=== PATIENT | male | born 1960 | race Caucasian/White ===

== ENCOUNTER 2023-12-31 02:16 | Day surgery (SDC) | payer MEDICARE, MEDICAID, SELFPAY ==
[2023-12-20 14:26] VITALS: BMI 27.6
--- NOTE | 2023-12-28 10:00 | SUR.PREOP ---
Patient called regarding upcoming procedure. Reviewed preop instructions, appointment times, and procedure prep.
[2023-12-31 09:10] VITALS: BP 136/89; PULSE 85; RESP 16; TEMP 36.1; O2SAT 99
[2023-12-31] MEDS: LACTATED RINGERS 1,000 ML 150 ML IV CONT (09:26)
--- NOTE | 2023-12-31 09:36 | WPDANESEPPF ---
Anes - Initial Pre Proc Eval Procedure: Operation Date: 12/31/23 10:30 Proposed Procedures p Esophagogastroduodenoscopy & Colonoscopy - Walt Archibald MD Date/Time: 12/31/23 09:36 Surgeon: Walt Archibald MD Pre Op Diagnosis: neoplasm screening, Unspecified cirrhosis of liver Patient Data Age: 63 Gender: M Height: 1.63 m Weight: 75.2 kg Last Vital Signs Temp 96.9 F L 12/31/23 09:10 Pulse 85 12/31/23 09:10 Resp 16 12/31/23 09:10 BP 136/89 12/31/23 09:10 Pulse Ox 99 12/31/23 09:10 O2 Del Method Room Air 12/31/23 09:10 Allergies Allergy/AdvReac Type Severity Reaction Status Date / Time No Known Allergies Allergy Unverified 12/31/23 09:08 Home Medications Medication Instructions Recorded Confirmed Type aspirin 81 mg tablet,delayed 81 mg PO DAILY 10/29/23 12/31/23 History release (Adult Aspirin Regimen) dapagliflozin propanediol 5 mg 5 mg PO DAILY 10/29/23 12/31/23 History tablet (Farxiga) lisinopril 40 mg tablet 40 mg PO DAILY 10/29/23 12/31/23 History metoprolol succinate 25 mg 25 mg PO DAILY 10/29/23 12/31/23 History tablet,extended release 24 hr pravastatin 80 mg tablet 80 mg PO DAILY 10/29/23 12/31/23 History colchicine 0.6 mg tablet 0.6 mg PO DAILY 12/20/23 12/31/23 History Patient hx anesthesia problems: none Family hx anesthesia problems: none Results Review: All pre-operative results and documents have been reviewed as part of the pre-operative evaluation. [facility] Past Medical History Medical History (Updated 10/29/23 @ 11:38 by JYOTI Strickland) Atrial fibrillation status post cardioversion Automatic implantable cardioverter-defibrillator lead displacement Bladder stones BPH (benign prostatic hyperplasia) CHF (congestive heart failure) Chronic kidney disease Diverticula, bladder Encounter for screening colonoscopy Gout Hyperlipemia Ischemic cardiomyopathy with implantable cardioverter-defibrillator (ICD) Leukocytopenia Myocardial infarction Pacemaker Paroxysmal atrial fibrillation Thrombocytopenia Unspecified cirrhosis of liver Venous embolism Ventricular tachycardia Surgical History Surgical History History of appendectomy History of colostomy History of colostomy reversal History of testicular surgery S/P CABG x 3 Social History Social History Smoking status: Former smoker Tobacco type: cigarettes Alcohol intake: former Substance use: current Substance use type: marijuana Last use: 12/20/23 Do You Feel Safe in your Home?: Yes Living arrangements: with family Spiritual care concerns: No Anes - Eval Final PreProcedure Day of Procedure 12/31/23 09:36 Patient weight: normal Heart: regular rate and rhythm Lungs: clear to auscultation Airway: Mallampati scale class II Neurological: alert and oriented Last oral intake: >/= 8 hours ASA classification: III Emergent: no Anesthetic plan: proceed Anesthesia type and monitoring: general GIVS and standard monitoring Results Review: All pre-operative results and documents have been reviewed as part of the pre-operative evaluation. Informed Consent: The patient's anesthetic plan and its attendant risks and benefits were discussed with the patient/family/POA. Questions were solicited and answers provided to the satisfaction of the patient/family/POA.
--- NOTE | 2023-12-31 10:02 | PM.HPGS ---
History of Present Illness History of Present Illness Consent: Risks, benefits, and alternatives have been discussed and questions answered. Patient agrees to proceed with procedure. Chief complaint: neoplasm screening, Unspecified cirrhosis of liver Narrative: Dominic Danielle is a 63 year old male with cirrhosis, no recent EGD Review of Systems Review of Systems: All systems reviewed & are unremarkable except as noted in HPI and below PMFSH Past Medical History Medical History (Updated 12/31/23 @ 10:02 by Walt Archibald MD) Atrial fibrillation status post cardioversion Automatic implantable cardioverter-defibrillator lead displacement Bladder stones BPH (benign prostatic hyperplasia) CHF (congestive heart failure) Chronic kidney disease Cirrhosis Colon cancer screening Diverticula, bladder Encounter for screening colonoscopy Gout Hyperlipemia Ischemic cardiomyopathy with implantable cardioverter-defibrillator (ICD) Leukocytopenia Myocardial infarction Pacemaker Paroxysmal atrial fibrillation Thrombocytopenia Unspecified cirrhosis of liver Venous embolism Ventricular tachycardia Surgical History Surgical History History of appendectomy History of colostomy History of colostomy reversal History of testicular surgery S/P CABG x 3 Social History Social History Smoking status: Former smoker Tobacco type: cigarettes Alcohol intake: former Substance use: current Substance use type: marijuana Last use: 12/20/23 Do You Feel Safe in your Home?: Yes Living arrangements: with family Spiritual care concerns: No Meds Home Medications and Allergies Home Medications Medication Instructions Recorded Confirmed Type aspirin 81 mg tablet,delayed 81 mg PO DAILY 10/29/23 12/31/23 History release (Adult Aspirin Regimen) dapagliflozin propanediol 5 mg 5 mg PO DAILY 10/29/23 12/31/23 History tablet (Farxiga) lisinopril 40 mg tablet 40 mg PO DAILY 10/29/23 12/31/23 History metoprolol succinate 25 mg 25 mg PO DAILY 10/29/23 12/31/23 History tablet,extended release 24 hr pravastatin 80 mg tablet 80 mg PO DAILY 10/29/23 12/31/23 History colchicine 0.6 mg tablet 0.6 mg PO DAILY 12/20/23 12/31/23 History Allergies Allergy/AdvReac Type Severity Reaction Status Date / Time No Known Allergies Allergy Unverified 12/31/23 09:08 Vital Signs Vital Signs - 24 hr 12/31/23 09:10 Temperature 96.9 F L Pulse Rate 85 Respiratory Rate 16 Blood Pressure 136/89 Pulse Oximetry 99 Oxygen Delivery Room Air Exam Const: General: comfortable and no acute distress HENMT: Face/Nose/Sinus: Normal nares present Eyes: General: appearance normal, both eyes and all related structures Neck: Neck: no JVD Resp: Auscultation: clear to auscultation bilaterally Cardio: Rate: regular rate Rhythm: regular rhythm GI: Inspection: non-distended GI Palp: Yes Soft to palpation Skin: General skin exam: normal color Neuro: General: gait normal Speech: normal speech Extrem: General: normal to inspection Psych: Mental Status: mental status grossly normal Assessment and Plan Assessment and plan (1) Cirrhosis: Code(s): K74.60 - Unspecified cirrhosis of liver Status: Acute Assessment and Plan: egd to assess if varices (2) Colon cancer screening: Code(s): Z12.11 - Encounter for screening for malignant neoplasm of colon Status: Acute Assessment and Plan: colonoscopy
--- NOTE | 2023-12-31 10:17 | SUR.OPER ---
EGD: [id number] COLON: Start 1018
[2023-12-31 10:31] VITALS: BP 101/65; PULSE 80; RESP 28; O2SAT 100
[2023-12-31 10:41] VITALS: BP 113/76; PULSE 81; RESP 22; O2SAT 100
[2023-12-31 10:51] VITALS: BP 125/84; PULSE 80; RESP 20; O2SAT 99
== END 2023-12-31 11:03 | disposition home or self-care (01) ==
PROVIDERS: Visit Provider Internal Medicine Gastroenterology
PROC: 0DJ08ZZ Inspection of Upper Intestinal Tract, Via Natural or Artificial Opening Endoscopic (ICD-10-PCS; CPT 43235; principal; 2023-12-31 10:30)
DX: Z12.11 Encounter for screening for malignant neoplasm of colon (principal); K63.5 Polyp of colon; K64.8 Other hemorrhoids; K29.50 Unspecified chronic gastritis without bleeding; I85.00 Esophageal varices without bleeding; K74.60 Unspecified cirrhosis of liver; N40.0 Benign prostatic hyperplasia without lower urinary tract symptoms; I50.9 Heart failure, unspecified; N18.9 Chronic kidney disease, unspecified; N32.3 Diverticulum of bladder; E78.5 Hyperlipidemia, unspecified; F12.90 Cannabis use, unspecified, uncomplicated; Z79.82 Long term (current) use of aspirin; I48.0 Paroxysmal atrial fibrillation; I25.2 Old myocardial infarction; Z98.890 Other specified postprocedural states; Z95.1 Presence of aortocoronary bypass graft; Z87.891 Personal history of nicotine dependence; Z86.79 Personal history of other diseases of the circulatory system; Z95.0 Presence of cardiac pacemaker
CPT/HCPCS: 43239; 45380; 88305; J2704; J7120

== ENCOUNTER 2024-01-26 07:32 | Outpatient (CLI) | payer MEDICARE, MEDICAID, SELFPAY ==
--- NOTE | ~2024-01-26 | US_ITS ---
US abdomen limited DATE: 01/26/2024 08:10 INDICATION: Cirrhosis of the liver TECHNIQUE: Real time imaging and Doppler analysis COMPARISON: None FINDINGS: Mild hepatic surface nodularity. There is mild coarsened heterogeneous echotexture of the l iver. The findings are consistent with clinical diagnosis of cirrhosis. No hepatic or pancreatic space-occupying mass lesion is detected. Normal hepatopedal portal venous flow direction. No gallstones or gallbladder wall thickening. Negative sonographic Marion sign. The common bile duct measures 4.1 mm, within normal range. IMPRESSION: Hepatic surface nodularity and coarsened echotexture, consistent with clinical diagnosis of cirrhosis Reviewed, dictated and finalized at [facility] Reviewed, dictated and finalized at [facility]. IMPRESSION: Hepatic surface nodularity and coarsened echotexture, consistent wi th clinical diagnosis of cirrhosis
== END 2024-01-26 07:33 | disposition home or self-care (01) ==
LOC: ANHIMG 07:33
PROVIDERS: Visit Provider Nurse Practitioner Family
DX: K74.60 Unspecified cirrhosis of liver (principal)
CPT/HCPCS: 76705

== ENCOUNTER 2024-08-20 08:14 | Outpatient (CLI) | payer MEDICARE, MEDICAID, SELFPAY ==
--- NOTE | ~2024-08-20 | US_ITS ---
Limited Abdominal Sonogram: Real-time sonographic imaging of the right upper quadrant was performed. Clinical History: Cirrhosis Findings: The liver is heterogeneous in echotexture, with nodular contour. No focal mass or biliary dilatation evident.. Main portal vein demonstrates normal direction of flow. The gallbladder is well distended, and appears normal with no evidence of gallstone or wall thickening. The common bile duct measures 5 mm. The visualized pancreas, aorta, and IVC are unremarkable. Impression: Cirrhotic appearance of the liver. No focal mass or biliary dilatation evident. Reviewed, dictated and finalized at [facility]. TECH Impression: Cirrhotic appearance of the liver. No focal mass or biliary dilatation evident.
== END 2024-08-20 08:15 | disposition home or self-care (01) ==
LOC: ANHIMG 08:14
PROVIDERS: Visit Provider Nurse Practitioner Family
DX: K74.60 Unspecified cirrhosis of liver (principal)
CPT/HCPCS: 76705

== ENCOUNTER 2024-10-02 10:24 | Outpatient (CLI) | payer MEDICARE, MEDICAID, SELFPAY ==
[2024-10-02 11:00] LABS: Hematocrit 42.8 % (42.0-52.0); Hemoglobin 14.6 g/dL (14.0-18.0); Immature Platelet Fraction Pct 4.3 % (0.9-11.2); Mean Corpuscular HGB Conc 34.1 g/dl (32-36); Mean Corpuscular Hemoglobin 33.6 pg (26-34); Mean Corpuscular Volume 98.4 fl (80-100); Mean Platelet Volume 10.6 fl (7.4-10.4); Platelet Count Result 50 k/mm3 (150-375); Red Blood Count 4.35 M/mm3 (4.6-6.20); Red Cell Distribution Width 13.7 % (11.5-14.5); White Blood Count 2.9 K/mm3 (4.5-10.0)
[2024-10-02 11:12] LABS: INR 1.1; Prothrombin Time 14.2 Seconds (11.1-14.7)
[2024-10-02 11:13] LABS: Alanine Aminotransferase 24 U/L (6-50); Albumin Level 4.1 g/dL (3.5-5.1); Alkaline Phosphatase 70 U/L (38-126); Anion Gap 2 mmol/L (4-12); Aspartate Amino Transferase 33 U/L (17-59); Bilirubin,Total 0.9 mg/dL (0.2-1.3); Blood Urea Nitrogen 21 mg/dL (9-20); Calcium 9.1 mg/dL (8.4-10.2); Carbon Dioxide 30 mmol/L (22-30); Chloride 108 mmol/L (98-107); Estimated Glomerular Filt Rate 36; Glucose 89 mg/dL (65-110); Potassium 4.7 mmol/L (3.4-5.0); Sodium 140 mmol/L (137-145)
== END 2024-10-02 10:25 | disposition home or self-care (01) ==
PROVIDERS: Visit Provider Nurse Practitioner Family
DX: K74.60 Unspecified cirrhosis of liver (principal)
CPT/HCPCS: 36415; 80053; 82105; 85027; 85055; 85610

== ENCOUNTER 2024-11-26 07:07 | Outpatient (CLI) | payer MEDICARE, MEDICAID, SELFPAY ==
--- NOTE | ~2024-11-26 | US_ITS ---
US abdomen limited INDICATION: Cirrhosis PROCEDURE: Realtime right upper abdominal ultrasound. COMPARISON: No prior studies for comparison. FINDINGS: The pancreas is normal without focal mass or pancreatic ductal dilation. Liver echotexture is coarse and heterogeneous with nodular liver surface, compatible with cirrhosis. No discrete hepat ic mass is seen. There is normal directional flow in the portal vein. The gallbladder is normal without stones, gallbladder wall thickening or pericholecystic fluid. Comm on bile duct measures 3 mm. No sonographic Marion's sign. IMPRESSION: 1: Cirrhosis of the liver. Reviewed, dictated and finalized at location A. LE DIPPER IMPRESSION: 1: Cirrhosis of the liver.
--- OUTSIDE RECORDS SUMMARY | 2024-11-26 07:11 | XMS_ITS | Encounter Summary ---
Author Organization [facility] Address [address] [place] [address] Care Team Providers Care Air Quality Engineer Name Role Phone Alexandra De León [facility] Primary Care Provider + Varun Cameron MD Unavailable [phone] Aurea Abad MD Unavailable [phone] Terrence Greene MD Unavailable Walt Archibald MD Unavailable [phone] Cedric Diaz DPM Unavailable Encounter Details Date Type Department Care Team (Late st Contact Info) Description 12/17/2023 Therapy Plan [facility] [address] [place], [place] [phone] Jeanette Garces, ROUTE SALESMAN-C [address] [id number] Social History Tobacco Use Types Packs/Day Years Used Date Smoking Tobacco: Former Cigarettes 1 25 1 975 - 2000 Smokeless Tobacco: Never Alcohol Use Standard Drinks/Week Comments Not Currently 0 (1 standard drink = 0.6 oz pur e alcohol) rare; quit 15-16 years PHQ-2 Answer Date Recorded Patient Health Questionnaire-2 Score 0 10/09/2023 Sex and Gender Information Value Date Recorded Sex Assigned at Male 10/23/2024 7:13 AM COMMUNITY OUTREACH MANAGER Legal Sex Male 11:26 AM CDT Gender Identity Not on file Sexual Orientation Not on file documented as of this encounter Plan of Treatment Upcoming Encounters Date Type Department Care Team (Late st Contact Info) Description 12/15/2024 10:25 AM CDT Allied Health/[facility], [address] [place] [address] Radha Noe MD [facility]. [facility] [address] [place], [place] [address] 12/31/2024 11:45 AM CDT Office Visit [facility] [id number] [place] [phone] Jeanette Garces, ROUTE SALESMAN-C [facility]. [facility] [address] [place], [place] [address] 01/12/2025 10:00 AM CDT Appointment [facility] [address] [place], [place] [phone] Terrence Greene MD [facility]. [facility] [address] [place] [address] 01/21/2025 9:00 AM CDT Office Visit [facility] [address] [place] [phone] Terrence Greene MD [facility]. [facility] [address] [place], [place] [address] 01/22/2025 8:40 AM CDT Office Visit [facility] Medical Group Family & Internal Medicine [facility] [address] [place] [address] Alexandra De León [facility] [address] [facility] [place], [address] [address] 04/01/2025 10:30 AM CDT Office Visit [facility] [address] Radha Noe MD [facility]. [address] [place] [address] 05/18/2025 10:20 AM CDT Office Visit [facility] Medical Group Multispecialty Care - [place] [facility] 3 [facility], [address] [place] [phone] Aurea Abad MD 3 [facility], [address] [place] [address] documented as of this encounter Visit Diagnoses Diagnosis Chronic kidney disease- Primary Chronic kidney disease, unspecified documented in this encounter Additional Health Concerns Assessment Noted Time PHQ-9 Depression Total Score: 1 10/08/19 24 7:01 AM COMMUNITY OUTREACH MANAGER documented as of this encounter Care Teams Air Quality Engineer Relationship Specialty Start Date End Date Alexandra De León [facility] [address] [facility], [address] [address] PCP - General Nurse Practitioner Family 06/22/23 [place] [address] [place] [address] Consulting Physician CARDIOVASCULAR DISEASE 04/21/24 Aurea Abad MD [address] [place] [address] 2 or 4 [place] [address] Consulting Physician NEPHROLOGY 04/21/24 [place] [address] [place] [address] Referring Physician VASCULAR SURGERY 04/21/24 Walt Archibald MD [address] [facility] [address] [place] [address] Consulting Physician GASTROENTEROLOGY 04/21/24 Cedric Diaz DPM [address] [facility] [address] [place] [address] Referring Physician PODIATRY 04/21/24 documented as of this encounter
--- OUTSIDE RECORDS SUMMARY | 2024-11-26 07:11 | XMS_ITS | Referral Summary ---
Author Organization [facility] Address [address] [place] [address] Care Team Providers Care Electric Sealing Machine Operator Name Role Phone Alexandra De León Primary Care Provider [phone] Source Comments [facility],non-owned Affiliates and Associated Physician Practices is amultiple site organization consisting of ambulatory clinics and hospital sitesin [place], [place], [place] and [place]. This disclosure is being madepursuant to the Care Everywhere program and may not contain all information available regarding this patient. Last updated 18.[facility] Allergies No known active allergies Medications * Be aware that medications may not be up to date on this document. Alwaysverify current medications with the patient. Medication Sig Dispensed Refills Start Date End Date Status aspirin EC (Ecotrin) 81 MG tablet Take 1 (one) tablet by mouth once daily Active colchicine 0.6 MG tablet Take 1 (one) tablet by mouth once daily Active Farxiga 5 MG tablet Take 1 (one) tablet by mouth once daily 06/23/2024 Active lisinopril (Prinivil; Zestril) 20 MG tablet Take 1 (one) tablet by mouth once daily 06/18/2024 Active nadolol (Corgard) 20 MG tablet Take 1 (one) tablet by mouth every 24 hours 05/29/2024 Active pravastatin (Pravachol) 80 MG tablet Take 1 (one) tablet by mouth once daily Active acetaminophen (Tylenol) 325 MG tablet Take 2 (two) tablets by mouth every 6 hours Maximum allowable Acetaminophen amount = 4 Grams (4000 mg) / 24 hours. 60 tablet 1 07/16/2024 Active docusate sodium (Colace) 100 MG capsule Take 1 (one) capsule by mouth 2 times daily 60 capsule 2 07/16/2024 Active polyethylene glycol 3350 (Miralax) 17 GM/SCOOP powder Take 17 (seventeen) g by mouth once daily 510 g 07/16/2024 Active oxyCODONE, immediate release, (Roxicodone) 5 MG tabletIndications: Ventral hernia without obstruction or gangrene Take 1 (one) tablet by mouth every 6 hours as needed for Pain 18 tablet 07/29/2024 Active amoxicillin-clavul anate (Augmentin) 200-28.5 MG chew tablet Take 1 (one) tablet by mouth 2 times daily 14 tablet 07/29/2024 Active oxyCODONE, immediate release, (Roxicodone) 5 MG tabletIndications: Trauma Take 1 (one) tablet by mouth every 6 hours as needed for Pain 12 tablet 07/31/2024 Active Social History Tobacco Use Types Packs/Day Years Used Date Smoking Tobacco: Never Smokeless Tobacco: Never Tobacco Cessation:Counseling Given: No Alcohol Use Standard Drinks/Week Comments Never 0 (1 standard drink = 0.6 oz pur e alcohol) AUDIT-C Answer Date Recorded Q1: How often do you have a drink containing alcohol? Never 07/16/2024 Q2: How many drinks containi ng alcohol do you have on a typical day when you are drinking? Patient does not drink Q3: How often do you have si x or more drinks on one occasion? Never 07/16/2024 Sex and Gender Information Value Date Recorded Sex Assigned at Not on file Gender Identity Not on file Sexual Orientation Not on file Last Filed Vital Signs Vital Sign Reading Time Taken Comments Blood Pressure 106/75 07/31/2024 11:40 AM CDT Pulse 73 07/31/2024 11:40 AM CDT Temperature 36.2 C (97.1 F) 07/31/2024 11:40 AM CDT Respiratory Rate 18 07/29/2024 6:41 PM CDT Oxygen Saturation 97% 07/31/2024 11:40 AM CDT Inhaled Oxygen Concentration - - Weight 71.4 kg (157 lb 6.4 oz) 07/31/2024 11:40 AM CDT Height 162.6 cm (5' 4 ) 07/31/2024 11:40 AM CDT Body Mass Index 27.02 07/31/2024 11:40 AM CDT Functional Status Functional Status Response Date of Assess ment Is person deaf or have serious hearing difficult y? No 07/16/2024 Is person blind or have serious difficulty seein g? No 07/16/2024 Does person have serious dif ficulty walking/climbing stairs? No 07/16/2024 Does person have difficulty dressing/bathing? No 07/16/2024 Does person have difficulty doing errands alone? No 07/16/2024 Cognitive Status Response Date of Assessm ent Does person have difficulty concentrating/remembering/making decisions? No 07/16/2024 Plan of Treatment Not on file Procedures Procedure Name Priority Date/Time Associated Diagnosis Comments BASIC METABOLIC PANEL (CALCIUM TOTAL) STAT 07/16/2024 7:58 AM CDT Thrombocytopenia (HCC) from Last 3 Months or Most Recently Relevant to Health Maintenance Results * (ABNORMAL) BASIC METABOLIC PANEL (CALCIUM TOTAL) (07/16/2024 7:58 AM CDT) BUN 27(H) 7 - 26 mg/dL 07/16/2024 8:41 AM [facility] Creatinine 1.81(H) 0.71 - 1.16 mg/dL 07/16/2024 8:41 AM [facility] Sodium 136 136 - 145 mmol/L 07/16/2024 8:41 AM [facility] Potassium 4.8(H) 3.5 - 4.5 mmol/L 07/16/2024 8:41 AM [facility] Comment:Hemolysis detected i n this specimen. Hemolysis may cause false elevations in potassium leading to pseudohyperkalemia or masked hypokalemia. Recommend repeat testing if clinically indicated. Chloride 106 98 - 107 mmol/L 07/16/2024 8:41 AM [facility] CO2 23 22 - 29 mmol/L 07/16/2024 8:41 AM [facility] Glucose 78 70 - 115 mg/dL 07/16/2024 8:41 AM [facility] Calcium 9.4 8.4 - 10.2 mg/dL 07/16/2024 8:[address] [facility] Anion Gap 7 6 - 16 07/16/2024 8:[address] [facility] BUN/Creatinine Ratio 15 7 - 23 07/01 8:[address] [facility] Osmolality Calculated 286 275 - 295 mOsm/kg 07/16/2024 8:[address] [facility] eGFR by CKD-EPI 41(L) >=90 mL/min/1 .73 m2 07/16/2024 8:[address] [facility] Blood BLOOD SPECIMEN / Unknown Venipuncture / Unknown 07/16/2024 7:58 AM CDT 07/16/2024 8:12 AM CDT Varun Valdes MD LAB - CHEMISTRY [facility] Organization Address City/State/ZIP Co de Phone Number [facility] [address] [place] [address], [facility] [phone] from Last 3 Months or Most Recently Relevant to Health Maintenance Advance Directives Healthcare Agents on File Name Relationship Healthcare Agent Randolph Healthhi p Communication Gonzalo Cordero Friend Power of Exceptional Student Education Aide (POA) Care Teams Electric Sealing Machine Operator Relationship Specialty Start Date End Date Alexandra De León [address] [address], [address] [place] [address] [facility] - General 06/26/24
--- OUTSIDE RECORDS SUMMARY | 2024-11-26 07:11 | XMS_ITS | Encounter Summary ---
Author Organization [facility] Address [address] [place] [address] Care Team Providers Care Cooling Room Attendant Name Role Phone Alexandra De León [facility] Primary Care Provider + Varun Cameron MD Unavailable [phone] Aurea Abad MD Unavailable [phone] Terrence Greene MD Unavailable Walt Archibald MD Unavailable [phone] Cedric Diaz DPM Unavailable Encounter Details Date Type Department Care Team (Late st Contact Info) Description 10/10/2023 LoopMe Message Enc [facility] Medical Group Multispecialty Care - [facility] [address] [facility] [address], [address] [phone] [place], [facility] Provider appointment Social History Tobacco Use Types Packs/Day Years Used Date Smoking Tobacco: Former Cigarettes 1 25 1 975 - 1999 Smokeless Tobacco: Never Alcohol Use Standard Drinks/Week Comments Not Currently 0 (1 standard drink = 0.6 oz pur e alcohol) rare; quit 15-16 years PHQ-2 Answer Date Recorded Patient Health Questionnaire-2 Score 0 10/09/2023 Sex and Gender Information Value Date Recorded Sex Assigned at Male 10/23/2024 7:13 AM DREDGE PIPEMAN Legal Sex Male 11:26 AM CDT Gender Identity Not on file Sexual Orientation Not on file documented as of this encounter Plan of Treatment Upcoming Encounters Date Type Department Care Team (Late st Contact Info) Description 12/15/2024 10:25 AM CDT [facility], [facility] [address] [place] [address] Radha Noe MD [facility]. [facility] [address] [place], [place] [address] 12/31/2024 11:45 AM CDT Office Visit [facility] [address] [place] [phone] Jeanette Garces, COMPUTER SALESPERSON RETAIL-C [facility]. [facility] [address] [place], [place] [address] 01/12/2025 10:00 AM CDT Appointment [facility] [address] [place], [place] [phone] Terrence Greene MD [facility]. [facility] [address] [place], [place] [address] 01/21/2025 9:00 AM CDT Office Visit [facility] [address] [place] [phone] Terrence Greene MD [facility]. [facility] [address] [place], [place] [address] 01/22/2025 8:40 AM CDT Office Visit [facility] Medical Group Family & Internal Medicine [facility] [address] [place] [address] Alexandra De León [facility] [address] [address], [address] [place] [address] 04/01/2025 10:30 AM CDT Office Visit [facility] [phone] Radha Noe MD [facility]. [address] [place] [address] 05/18/2025 10:20 AM CDT Office Visit [facility] Medical Group Multispecialty Care - [facility] 3 [facility], [address] [place] [address] Aurea Abad MD 3 [facility], [facility] [address] [place] [address] documented as of this encounter Visit Diagnoses Not on filedocumented in this encounter Additional Health Concerns Assessment Noted Time PHQ-9 Depression Total Score: 1 10/08/19 24 7:01 AM DREDGE PIPEMAN documented as of this encounter Care Teams Cooling Room Attendant Relationship Specialty Start Date End Date Alexandra De León [facility] [address], [address] [place] [address] PCP - General Nurse Practitioner Family 06/22/23 [place] [address] [place] [address] Consulting Physician CARDIOVASCULAR DISEASE 04/21/24 Aurea Abad MD [address] [facility] [address] [place], [place] [address] 493- Consulting Physician NEPHROLOGY 04/21/24 [place] [address] [place] [address] Referring Physician VASCULAR SURGERY 04/21/24 Walt Archibald MD [address] [facility] [address] [place] [address] Consulting Physician GASTROENTEROLOGY 04/21/24 Cedric Diaz DPM [address] [facility] [address] [place] [address] Referring Physician PODIATRY 04/21/24 documented as of this encounter
--- OUTSIDE RECORDS SUMMARY | 2024-11-26 07:11 | XMS_ITS | Encounter Summary ---
Author Organization [facility] Address [address] [place] [address] Care Team Providers Care Guest Service Supervisor Name Role Phone Alexandra De León [facility] Primary Care Provider + Varun Cameron MD Unavailable [phone] Aurea Abad MD Unavailable [phone] Terrence Greene MD Unavailable Walt Archibald MD Unavailable [phone] Cedric Diaz DPM Unavailable Encounter Details Date Type Department Care Team (Late st Contact Info) Description 10/19/2023 PPLCONNECT Message [facility] Family [facility] Internal Medicine [facility] [address] [place] [address] [facility] Provider medication Social History Tobacco Use Types Packs/Day Years [...] Sex Assigned at Male 10/23/2024 7:13 AM RESIDENTIAL PROGRAM COORDINATOR Legal Sex Male 11:26 AM CDT Gender Identity Not on file Sexual Orientation Not on file documented as of this encounter Progress Notes * Princess Wong RN - 10/29/2023 1:43 PM CST Please see other encounter. 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 DENTIAL PROGRAM COORDINATOR * Princess Wong RN - 10/26/2023 12:04 PM CST Advise? DENTIAL PROGRAM COORDINATOR documented in this encounter Plan of Treatment Upcoming Encounters Date Type Department Care Team (Late st Contact Info) Description 12/15/2024 10:25 AM CDT Allied Health/Nurse Visit [facility], [facility] [address] [place] [address] Radha Noe MD [facility]. [facility] [address] [place] [address] 12/31/2024 11:45 AM CDT [facility] [address] [place] [phone] Jeanette Garces, CRYPTOGRAPHY TEACHER-C [facility]. [facility] [address] [place] [address] 01/12/2025 10:00 AM CDT Appointment [facility] [address] [place] [address] Terrence Greene MD Three [facility]. [facility] [address] [place], [place] [address] 01/21/2025 9:00 AM CDT [facility] [address] [place] [phone] Terrence Greene MD Three [facility]. [facility] [address] [place], [place] [address] 01/22/2025 8:40 AM CDT Office Visit [facility] Family & Internal Medicine [facility] [address] [place] [address] Alexandra De León, [facility] [address] [facility] [address] [place], [place] [phone] 04/01/2025 10:30 AM CDT Office Visit [facility] [address] [phone] Radha Noe MD Three [facility]. [facility] [address] [place] [address] 05/18/2025 10:20 AM CDT Office Visit [facility] Multispecialty Care - [facility] 3 [facility], [facility] [address] [place] [address] Aurea Abad MD 3 [facility], [facility] [address] [place], [place] [address] documented as of this encounter Visit Diagnoses Not on filedocumented in this encounter Additional Health Concerns Assessment Noted Time PHQ-9 Depression Total Score: 1 10/08/19 24 7:01 AM RESIDENTIAL PROGRAM COORDINATOR documented as of this encounter Care Teams Guest Service Supervisor Relationship Specialty Start Date End Date Alexandra De León, MANAGER FILTER- [address], [address] [place] [address] PCP - General Nurse Practitioner Family 06/22/23 [place] [address] [place] [address] Consulting Physician CARDIOVASCULAR DISEASE 04/21/24 Aurea Abad MD [address] [facility] [address] or [address] [place] [address] Consulting Physician NEPHROLOGY 04/21/24 [place] [address] [place] [address] Referring Physician VASCULAR SURGERY 04/21/24 Walt Archibald MD [address] [facility] [address] [place] [address] Consulting Physician GASTROENTEROLOGY 04/21/24 Cedric Diaz DPM [address] [place] [address] Referring Physician PODIATRY 04/21/24 documented as of this encounter
--- OUTSIDE RECORDS SUMMARY | 2024-11-26 07:11 | XMS_ITS | Encounter Summary ---
Author Organization [facility] Address [address] [place] [address] Care Team Providers Care Set Up Mechanic Automatic Line Name Role Phone Alexandra De León [facility] Primary Care Provider + Varun Cameron MD Unavailable [phone] Aurea Abad MD Unavailable [phone] Terrence Greene MD Unavailable Walt Archibald MD Unavailable [phone] Cedric Diaz DPM Unavailable Encounter Details Date Type Department Care Team (Late st Contact Info) Description 12/19/2023 [employer] Message [facility] [address] [place], [place] [phone] [facility] Provider appointment time change on January 01 Social History Tobacco Use Types Packs/Day Years [...] Sex Assigned at Male 10/23/2024 7:13 AM TAPER MACHINE Legal Sex Male 11:26 AM CDT Gender Identity Not on file Sexual Orientation Not on file documented as of this encounter Plan of Treatment Upcoming Encounters Date Type Department Care Team (Late st Contact Info) Description 12/15/2024 10:25 AM CDT Allied Health[facility] THREE [facility], [address] [place], [place] [address] Radha Noe MD [facility]. [facility] [address] [place], [place] [address] 12/31/2024 11:45 AM CDT Office Visit [facility] [address] [place] [phone] Jeanette Garces, LETTER OF CREDIT CLERK-C [facility]. [facility] [address] [place], [place] [address] 01/12/2025 10:00 AM CDT Appointment [facility] [address] [place] [address] Terrence Greene MD [facility]. [facility] [address] [place], [place] [address] 01/21/2025 9:00 AM CDT Office Visit [facility] [address] [place] [phone] Terrence Greene MD [facility]. [facility] [address] [place], [place] [address] 01/22/2025 8:40 AM CDT Office Visit [facility] Family & Internal Medicine [facility] [address] [place] [address] Alexandra De León, PHONE BANKER- [address] [place] [address] 04/01/2025 10:30 AM CDT Office Visit [facility] [address] [place] [phone] Radha Noe MD Three [facility]. [address] [place], [place] [address] 05/18/2025 10:20 AM CDT Office Visit [facility] Multispecialty Care - [facility] 3 [facility], [address] [place] [address] Aurea Abad MD [address] [facility], [address] [place] [address] documented as of this encounter Visit Diagnoses Not on filedocumented in this encounter Additional Health Concerns Assessment Noted Time PHQ-9 Depression Total Score: 1 10/08/19 24 7:01 AM TAPER MACHINE documented as of this encounter Care Teams Set Up Mechanic Automatic Line Relationship Specialty Start Date End Date Alexandra De León, [facility]- [address], [address] [place] [address] PCP - General Nurse Practitioner Family 06/22/23 [place] [address] [place] [address] Consulting Physician CARDIOVASCULAR DISEASE 04/21/24 Aurea Abad MD [address] [facility] [address] [place] [address] Consulting Physician NEPHROLOGY 04/21/24 [place] [address] [place] [address] Referring Physician VASCULAR SURGERY 04/21/24 Walt Archibald MD [address] [facility] [address] [facility] [address] [place] [address] Consulting Physician GASTROENTEROLOGY 04/21/24 Cedric Diaz DPM [address] [facility] [address] [facility] [address] [place] [address] Referring Physician PODIATRY 04/21/24 documented as of this encounter
--- OUTSIDE RECORDS SUMMARY | 2024-11-26 07:11 | XMS_ITS | Encounter Summary ---
Author Organization [facility] Address [facility] [place] [address] Care Team Providers Care Indirect Sales Exec Name Role Phone Alexandra De León [facility] Primary Care Provider + Varun Cameron MD Unavailable [phone] Aurea Abad MD Unavailable [phone] Terrence Greene MD Unavailable Walt Archibald MD Unavailable [phone] Cedric Diaz DPM Unavailable Encounter Details Date Type Department Care Team (Late st Contact Info) Description 08/07/2023 [email or web address] Message [facility] [address] [place] [phone] Radha Noe MD [address] [address] battery change Social History Tobacco Use Types Packs/Day Years Used Date Smoking Tobacco: Former Cigarettes 1 25 1 975 - 2000 Smokeless Tobacco: Never Alcohol Use Standard Drinks/Week Comments Not Currently 0 (1 standard drink = 0.6 oz pur e alcohol) rare; quit 15-16 years PHQ-2 Answer Date Recorded Patient Health Questionnaire-2 Score 0 07/05/2023 Sex and Gender Information Value Date Recorded Sex Assigned at Male 10/23/2024 7:13 AM CNC SET UP OPERATOR Legal Sex Male 11:26 AM CDT Gender Identity Not on file Sexual Orientation Not on file documented as of this encounter Progress Notes * Sabina Koch - 08/08/2023 11:31 AM CST Procedure scheduled SET UP OPERATOR * Marcia Marin RN - 08/08/2023 9:15 AM CST [email or web address] message sent to the patient with the above information. SET UP OPERATOR * Ava Kwok PA-C - 08/07/2023 4:28 PM CST Reassurance we do have about a 3-6 month window. But we will get it set up SUMMER. Thanks Ava SET UP OPERATOR * Ava Kwok PA-C - 08/07/2023 4:28 PM CST Patient needs a generator change. Device is at [facility]. Thanks Ava SET UP OPERATOR documented in this encounter Plan of Treatment Upcoming Encounters Date Type Department Care Team (Late st Contact Info) Description 12/15/2024 10:25 AM CDT Allied Health/N[facility], [facility] [address] [place], [place] [address] Radha Noe MD [facility]. [facility] [address] [place], [place] [address] 12/31/2024 11:45 AM CDT Office Visit [facility] [facility] [address] [place] [address] Jeanette Garces, COMBINE OPERATOR-C [facility]. [address] [place], [place] [address] 01/12/2025 10:00 AM CDT Appointment [facility] [address] [place] [address] Terrence Greene MD [facility]. [address] [place], [place] [address] 01/21/2025 9:00 AM CDT Office Visit [facility] [address] [phone] Terrence Greene MD [facility]. [facility] [address] [place], [place] [address] 01/22/2025 8:40 AM CDT Office Visit [facility] Family & Internal Medicine [facility] [address] [place] [address] Alexandra De León, [facility] [address] [facility], [address] [place], [place] [address] 04/01/2025 10:30 AM CDT Office Visit [facility] [address] [phone] Radha Noe MD [facility]. [address] [place], [place] [address] 05/18/2025 10:20 AM CDT Office Visit [facility] Multispecialty Care - [facility] 3 [facility], [address] [place] [address] Aurea Abad MD 3 [facility], [address] [place] [address] documented as of this encounter Visit Diagnoses Not on filedocumented in this encounter Care Teams Indirect Sales Exec Relationship Specialty Start Date End Date Alexandra De León, [facility]- [address] [address], [address] [place] [address] PCP - General Nurse Practitioner Family 06/22/23 [place] [address] [place] [address] Consulting Physician CARDIOVASCULAR DISEASE 04/21/24 Aurea Abad MD 9515 [facility] [address] [place] [address] Consulting Physician NEPHROLOGY 04/21/24 [place] [address] [place] [address] Referring Physician VASCULAR SURGERY 04/21/24 Walt Archibald MD [address] [facility] [address] [place] [address] Consulting Physician GASTROENTEROLOGY 04/21/24 Cedric Diaz DPM [address] [facility] [address] [place] [address] Referring Physician PODIATRY 04/21/24 documented as of this encounter
--- OUTSIDE RECORDS SUMMARY | 2024-11-26 07:11 | XMS_ITS | Patient Health Summary ---
Author Organization [facility] Address [address] [place] [address] Care Team Providers Care National Sales Executive Name Role Phone Alexandra De León Primary Care Provider [phone] Note from [facility],non-owned Affiliates and Associated Physician Practices is amultiple site organization consisting of ambulatory clinics and hospital sitesin [place], [place], [place] and [place]. This disclosure is being madepursuant to the Care Everywhere program and may not contain all information available regarding this patient. Last updated 18.[facility] Allergies No known active allergies Medications * Be aware that medications may not be up to date on this document. Alwaysverify current medications with the patient. * aspirin EC (Ecotrin) 81 MG tablet Take 1 (one) tablet by mouth once daily * colchicine 0.6 MG tablet Take 1 (one) tablet by mouth once daily * Farxiga 5 MG tablet(Started 06/23/2024) Take 1 (one) tablet by mouth once daily * lisinopril (Prinivil; Zestril) 20 MG tablet(Started 06/18/2024) Take 1 (one) tablet by mouth once daily * nadolol (Corgard) 20 MG tablet(Started 05/29/2024) Take 1 (one) tablet by mouth every 24 hours * pravastatin (Pravachol) 80 MG tablet Take 1 (one) tablet by mouth once daily * acetaminophen (Tylenol) 325 MG tablet(Started 07/16/2024) Take 2 (two) tablets by mouth every 6 hours Maximum allowable Acetaminophen amount = 4 Grams (4000 mg) / 24 hours. 1 refill by 07/16/2025 * docusate sodium (Colace) 100 MG capsule(Started 07/16/2024) Take 1 (one) capsule by mouth 2 times daily 2 refills by 07/16/2025 * polyethylene glycol 3350 (Miralax) 17 GM/SCOOP powder(Started 07/16/2024) Take 17 (seventeen) g by mouth once daily * oxyCODONE, immediate release, (Roxicodone) 5 MG tablet(Started 07/29/2024) Take 1 (one) tablet by mouth every 6 hours as needed for Pain * amoxicillin-clavulanate (Augmentin) 200-28.5 MG chew tablet(Started 07/29/2024) Take 1 (one) tablet by mouth 2 times daily * oxyCODONE, immediate release, (Roxicodone) 5 MG tablet(Started 07/31/2024) Take 1 (one) tablet by mouth every 6 hours as needed for Pain Social History Tobacco Use Types Packs/Day Years [...] Mass Index 27.02 07/31/2024 11:40 AM CDT Procedures * PREPARE PLATELET PHERESIS UNIT(S)(Performed 07/17/2024) Performed for Thrombocytopenia (HCC) * PREPARE RBC LEUKOREDUCED UNIT(Performed 07/17/2024) Performed for Thrombocytopenia (HCC) * PERIPHERAL BLOCK(Performed 07/16/2024) * ENDOTRACHEAL TUBE NOTE(Performed 07/16/2024) * ND RPR AA HERNIA 1ST < 3 CM REDUCIBLE(Performed 07/16/2024) Performed for Ventral incisional hernia without obstruction or gangrene * TYPE + SCREEN PANEL(Performed 07/16/2024) Performed for Pre-op exam * BASIC METABOLIC PANEL (CALCIUM TOTAL)(Performed 07/16/2024) Performed for Thrombocytopenia (HCC) * CBC W AUTO DIFFERENTIAL(Performed 07/16/2024) Performed for Thrombocytopenia (HCC) * TYPE + SCREEN PANEL(Performed 07/14/2024) Performed for Pre-op examination * PT-INR [facility](Performed 07/14/2024) Performed for Pre-op examination * CBC W/O DIFFERENTIAL(Performed 07/14/2024) Performed for Pre-op examination * COMPREHENSIVE METABOLIC PANEL(Performed 07/14/2024) Performed for Pre-op examination * EKG 12-LEAD(Performed 07/14/2024) Performed for Pre-op examination * CT ABDOMEN PELVIS WO CONTRAST(Performed 06/30/2024) Performed for Incisional hernia, without obstruction or gangrene Results * PREPARE (CROSSMATCH) RBC UNIT(S), 1 Units (07/17/2024 1:17 AM CDT) Unit Description AS1 LR PRBC [facility] B[facility]OD [facility] Unit ABO A [facility] Unit Rh POS [facility] Product Number R02 [facility] B LOOD BANK [facility] Unit Donor # [id number] [facility] Unit Status released [facility] BLOO D BANK LAB Product Code [id number] [facility] BLO OD BANK LAB Blood Type Barcode 6200 [facility] Expiration Date [id number] S BLOOD BANK LAB Blood Bank BLOOD SPECIMEN / Unknown 07/16/2024 8:05 AM CDT Varun Valdes MD LAB - BLOOD BANK ORD ERABLES Performing Organization Address City/[facility]/ZIP Co de Phone Number [facility] [address] [place] [address], [facility] [phone] * PREPARE PLATELET PHERESIS UNIT(S), 1 Units (07/17/2024 1:17 AM CDT) Unit Description N/A [facility] BLOOD [facility] Blood Bank BLOOD SPECIMEN / Unknown 07/16/2024 8:05 AM CDT Varun Valdes MD LAB - BLOOD BANK ORD MILAD Performing Organization Address [facility] Co de Phone Number [facility] [address] [place] [address], [place] [phone] * Peripheral Nerve Block (07/16/2024 10:48 AM CDT) Narrative Jose Colbert MD - 07/16/2024 10:48 AM CDT Jose Colbert MD 07/16/2024 4:09 PM Peripheral Nerve Block Procedure: Peripheral Nerve Block Patient Location: Pre-op Preprocedure Section: Indications: at surgeon's request. Pre-anesthetic Checklist: Patient identified, IV Checked, Site examined and clear, Surgical consent verified, Risks and benefits discussed, Monitors and equipment, Time-out performed and Allergies reviewed Monitors: BP, Pulse Ox and EKG. Patient Condition: general anesthetic Patient Position: supine Procedure Section Laterality: bilateral Prep: Chloraprep Strerile Field: gloves Block performed: transverse abdominus plane Needle Type: Echogenic insulated Needle Gauge: 21 Needle Length: 90 mm Catheter? No Ultrasound Guided? Yes Technique: in plane Visualization: Preliminary scan performed, Important anatomical structures identified, Needle tip visualized throughout the procedure, Target identified, No intraneural or intravascular puncture occurred, Ultrasound image in chart, Local visualized surrounding nerve on ultrasound and Hydrodissection utilized Block Agents or Additives used? Yes Block agents used: bupivacaine PF (MARCAINE PF) 0.25 % injection - Infiltration 30 mL - 07/16/2024 10:28:00 AM Procedure Tolerance: tolerated well and performed while patient under general anesthesia Procedure Start Time: 07/16/2024 10:20 AM. Procedure End Time: 07/16/2024 10:28 AM. Procedure Total Time: 8 minutes. Staff Section Anesthesia Provider: Jose Colbert MD, Performed the procedure Provider #1: Rao Borja MD, Performed the procedure. Additional Comments: I was present the entire time and supervised the peripheral nerve block. For post op pain.. Varun Valdes MD GENERAL ANESTHESIA O RDERABLES * ETT LINE PERFORMABLE (07/16/2024 9:48 AM CDT) Narrative Ava Bragg MD - 07/16/2024 9:48 AM CDT Ava Bragg MD 07/16/2024 9:49 AM Endotracheal Tube Placement: Patient Location: OR. Intubation Event Date/Time: 07/16/2024 9:31 AM Procedure: intubation (22523) Procedure Section: Sedation: under general anesthesia. Indications for Airway Management: anesthesia Induction: standard IV Patient Position: sniffing and supine Mask Ventilation: difficult. Blade Type: Chad Blade Size: 4 Laryngoscopy View: grade 2 (partial cords) Intubation Adjuncts: stylet and cricoid pressure Tube: endotracheal tube Placement: oral Tube type: cuff - inflated Tube Size (MM): 8 Depth of Insertion (CM): 23 Measured From: teeth Cuff volume (mL): 9 Cuff Inflated With: air Number of Attempts: 1. Placement Verified By: direct visualization, chest auscultation, CO2 monitor and bilateral breath sounds Tube secured with: adhesive tape. Dentition unchanged? Yes Difficult Airway? No. Procedure Start Time: 07/16/2024 9:31 AM. Staff Section Anesthesia Provider: Ava Bragg MD, Performed the procedure Elisha Christensen MD GENERAL ANESTHESIA O ASHERERABLES * TYPE + SCREEN PANEL (07/16/2024 7:58 AM CDT) Only the most recent of2 resultswithin the time period is included. Antibody Screen NEG 8:47 AM CDT [facility] ABO Rh A POS 07/16/2024 8:47 AM CDT [facility] Blood Bank BLOOD SPECIMEN / Unknown Venipuncture / Unknown 07/16/2024 7:58 AM CDT 07/16/2024 8:05 AM CDT Radha Mcgraw BARREL LATHE OPERATOR INSIDE-PUBLICATIONS PRODUCTION SUPERVISOR LAB - BLOOD BANK ORDERABLES [facility] [address] [place] [address], [facility] [phone] * (ABNORMAL) CBC W AUTO DIFFERENTIAL (07/16/2024 7:58 AM CDT) WBC 3.5(L) 4.0 - 10.7 x10E9/L 07/16/2024 8:54 AM T [facility] RBC Count 4.19(L) 4.30 - 5.80 x10E12/L 07/16/2024 8:54 AM [facility] Hemoglobin 14.3 13.3 - 17.5 g/dL 07/16/2024 8:54 AM [facility] Hematocrit 40.7 38.7 - 51.1 % 07/16/2024 8:54 AM [facility] MCV 97.1 80.0 - 98.0 fL 07/16/2024 8:54 AM [facility] MCH 34.1(H) 26.7 - 33.6 pg 07/16/2024 8:54 AM [facility] MCHC 35.1 31.7 - 36.3 g/dL 07/16/2024 8:54 AM [facility] RDW-CV 13.9 11.3 - 14.8 % 07/16/2024 8:54 AM [facility] Platelet Count 47(L) 150 - 420 x10E9/L 07/16/2024 8:54 AM [facility] MPV 10.5 7.8 - 11.4 fL 07/16/2024 8:54 AM [facility] Neutrophil % 70.4 41.0 - 74.0 % 07/16/2024 8:54 AM [facility] Lymphocyte % 15.4(L) 17.0 - 47.0 % 07/16/2024 8:54 AM [facility] Monocyte % 10.4 3.0 - 11.0 % 07/16/2024 8:54 AM CDT [facility] Eosinophil % 2.9 0.0 - 7.0 % 07/16/2024 8:54 AM [facility] Basophil % 0.3 0.0 - 1.6 % 07/16/2024 8:54 AM CDT [facility] Immature Granulocytes % 0.6 0.0 - 1.0 % 07/16/2024 8:54 AM T [facility] Neutrophil Absolute 2.43 1.60 - 7.50 x10E9/L 07/16/2024 8:54 AM T [facility] Lymphocyte Absolute 0.53(L) 1.00 - 4.40 x10E9/L 07/16/2024 8:54 AM T [facility] Monocyte Absolute 0.36 0.15 - 1.00 x10E9/L 07/16/2024 8:54 AM [facility] Eosinophil Absolute 0.10 0.00 - 0.60 x10E9/L 07/16/2024 8:54 AM [facility] Basophil Absolute 0.01 0.00 - 0.13 x10E9/L 07/16/2024 8:54 AM [facility] Blood BLOOD SPECIMEN / Unknown Venipuncture / Unknown 07/16/2024 7:58 AM CDT 07/16/2024 8:29 AM CDT Varun Valdes MD LAB - HEMATOLOGY ORD ERABLES Performing Organization Address City/State/[facility] Co de Phone Number [facility] [address] [place] [id number] [phone] * (ABNORMAL) BASIC METABOLIC PANEL (CALCIUM TOTAL) (07/16/2024 7:58 AM CDT) BUN 27(H) 7 - 26 mg/dL 07/16/2024 8:41 AM T [facility] Creatinine 1.81(H) 0.71 - 1.16 mg/dL 07/16/2024 8:41 AM T [facility] Sodium 136 136 - 145 mmol/L 07/16/2024 8:41 AM [facility] Potassium 4.8(H) 3.5 - 4.5 mmol/L 07/16/2024 8:41 AM [facility] Comment:Hemolysis detected i n this specimen. Hemolysis may cause false elevations in potassium leading to pseudohyperkalemia or masked hypokalemia. Recommend repeat testing if clinically indicated. Chloride 106 98 - 107 mmol/L 07/16/2024 8:41 AM [facility] CO2 23 22 - 29 mmol/L 07/16/2024 8:41 AM [facility] Glucose 78 70 - 115 mg/dL 07/16/2024 8:41 AM [facility] Calcium 9.4 8.4 - 10.2 mg/dL 07/16/2024 8:41 AM [facility] Anion Gap 7 6 - 16 07/16/2024 8:41 AM [facility] BUN/Creatinine Ratio 15 7 - 23 07/01 8:41 AM [facility] Osmolality Calculated 286 275 - 295 mOsm/kg 07/16/2024 8:41 AM [facility] eGFR by CKD-EPI 41(L) >=90 mL/min/1 .73 m2 07/16/2024 8:41 AM [facility] Blood BLOOD SPECIMEN / Unknown Venipuncture / Unknown 07/16/2024 7:58 AM CDT 07/16/2024 8:12 AM T Varun Valdes MD LAB - CHEMISTRY [facility] Organization Address City/State/ZIP Co de Phone Number [facility] [address] [place] [address], [facility] [phone] * PT-INR [facility] (07/14/2024 9:58 AM CDT) PT 13.7 12.1 - 14.8 Seconds 07/14/2024 10:52 AM [facility] INR 1.1 See Comment 07/14/2024 10:52 AM [facility] Comment:The suggested therap eutic range for standard coumadin (warfarin) therapy is an INR of 2.0-3.0. For high-risk patients (Mechanical Mitral Valve Prosthesis, etc.), the suggested prophylactic therapeutic range is an INR of 2.5-3.5. Blood BLOOD SPECIMEN / Unknown Lab Venipuncture / Unknown 07/14/2024 9:58 AM CDT 07/14/2024 10:17 AM CDT Radha Mcgraw BARREL LATHE OPERATOR INSIDE-PUBLICATIONS PRODUCTION SUPERVISOR LAB - COAGULATIO N ORDERABLES [facility] [address] [place] [address], [facility] [phone] * (ABNORMAL) CBC W/O DIFFERENTIAL (07/14/2024 9:58 AM CDT) WBC 2.8(L) 4.0 - 10.7 x10E9/L 07/14/2024 10:46 AM [facility] RBC Count 4.19(L) 4.30 - 5.80 x10E12/L 07/14/2024 10:46 AM [facility] Hemoglobin 14.1 13.3 - 17.5 g/dL 07/14/2024 10:46 AM [facility] Hematocrit 40.3 38.7 - 51.1 % 07/14/2024 10:46 AM [facility] MCV 96.2 80.0 - 98.0 fL 07/14/2024 10:46 AM [facility] MCH 33.7(H) 26.7 - 33.6 pg 07/14/2024 10:46 AM [facility] MCHC 35.0 31.7 - 36.3 g/dL 07/14/2024 10:46 AM [facility] RDW-CV 13.9 11.3 - 14.8 % 07/14/2024 10:46 AM [facility] Platelet Count 50(L) 150 - 420 x10E9/L 07/14/2024 10:46 AM [facility] MPV 10.3 7.8 - 11.4 fL 07/14/2024 10:46 AM [facility] Blood BLOOD SPECIMEN / Unknown Lab Venipuncture / Unknown 07/14/2024 9:58 AM CDT 07/14/2024 10:24 AM T Radha Mcgraw BARREL LATHE OPERATOR INSIDE-PUBLICATIONS PRODUCTION SUPERVISOR LAB - HEMATOLOGY ORDERABLES [facility] [address] [place] [address], [facility] [phone] * (ABNORMAL) COMPREHENSIVE METABOLIC PANEL (07/14/2024 9:58 AM T) BUN 23 7 - 26 mg/dL 07/14/2024 11:01 AM [facility] Creatinine 1.84(H) 0.71 - 1.16 mg/dL 07/14/2024 11:01 AM [facility] Sodium 137 136 - 145 mmol/L 07/14/2024 11:01 AM [facility] Potassium 4.6(H) 3.5 - 4.5 mmol/L 07/14/2024 11:01 AM [facility] Chloride 108(H) 98 - 107 mmol/L 07/14/2024 11:01 AM [facility] CO2 24 22 - 29 mmol/L 07/14/2024 11:01 AM [facility] Glucose 83 70 - 115 mg/dL 07/14/2024 11:01 AM [facility] Calcium 9.2 8.4 - 10.2 mg/dL 07/14/2024 11:01 AM [facility] Protein Total 7.0 6.0 - 8.3 g/dL 07/14/2024 11:01 AM [facility] Albumin 3.9 3.4 - 5.0 g/dL 07/14/2024 11:01 AM [facility] Bilirubin Total 1.1 0.2 - 1.2 mg/dL 07/14/2024 11:01 AM [facility] Alkaline Phosphatase 58 40 - 150 U/L 07/14/2024 11:01 AM [facility] ALT 22 5 - 55 U/L 07/14/2024 11:01 AM [facility] AST 27 5 - 34 U/L 07/14/2024 11:01 AM [facility] Anion Gap 5(L) 6 - 16 07/14/2024 11:01 AM [facility] BUN/Creatinine Ratio 13 7 - 23 07/14/2024 11:01 AM [facility] Osmolality Calculated 287 275 - 295 mOsm/kg 07/14/2024 11:01 AM [facility] Albumin/Globulin Ratio 1.3 1.1 - 2.3 07/14/2024 11:01 AM [facility] eGFR by CKD-EPI 40(L) >=90 mL/min/1.7 3 m2 07/14/2024 11:01 AM [facility] Blood BLOOD SPECIMEN / Unknown Lab Venipuncture / Unknown 07/14/2024 9:58 AM CDT 07/14/2024 10:24 AM CDT Radha Mcgraw APRN-PUBLICATIONS PRODUCTION SUPERVISOR LAB - CHEMISTRY ORDERABLES [facility] [address] [place] [address], [facility] [phone] * EKG 12-LEAD (07/14/2024 9:13 AM CDT) Ventricular Rate 74 BPM [facility] MUSE Atrial Rate 74 BPM [facility] MUSE P-R Interval 298 ms [facility] MUSE QRS Duration ms 96 ms [facility] MUSE Q-T Interval ms 408 ms [facility] MUSE QTC Calculation (Bezet) 452 ms [facility] MUSE Calculated P [place] 57 degrees [facility] MUSE Calculated R [place] -5 degrees [facility] MUSE Calculated T [place] 137 degrees [facility] MUSE Interpretation EKG Atrial-paced rhythm with prolonged AV conduction POSSIBLE INFERIOR INFARCT , AGE UNDETERMINED ABNORMAL ECG NO PREVIOUS ECGS AVAILABLE Confirmed by MD DARSHAN, MARSHALL ([id number]) on 07/14/2024 12:22:20 PM [facility] MUSE 07/14/2024 9:13 AM CDT 07/14/2024 12:22 PM CDT Radha Mcgraw APRN-PUBLICATIONS PRODUCTION SUPERVISOR ECG ORDERABLES [facility] * CT Abdomen Pelvis Wo Contrast (06/30/2024 9:17 AM CDT) Anatomical Region Laterality Modality Abdomen, Pelvis Computed Tomogra phy 06/30/2024 10:0 1 AM CDT Impressions 06/30/2024 10:08 AM CDT IMPRESSION: 1. Probable small periumbilical incisional hernia, presumably a prior ostomy site, though the hernia sac is difficult to define. 2. Hepatic cirrhosis and portal hypertension. 3. Findings suggesting polycystic kidneys with numerous incompletely characterized intermediate attenuating lesions, possibly hemorrhagic/proteinaceous cyst. 4. Liver and kidneys could be further evaluated by MR, if not performed at an outside institution. > Interpreting Provider: Rao Corcoran MD on 06/30/2024 10:08 AM Narrative 06/30/2024 10:08 AM CDT PROCEDURE: CT ABDOMEN PELVIS WO CONTRAST DATE/TIME OF EXAM: 06/30/2024 9:17 AM CLINICAL INFORMATION: None relevant/not provided if blank. Indication: K43.2: Incisional hernia without obstruction or gangrene Additional History: COMPARISON: None. TECHNIQUE: CT of the abdomen and pelvis was performed without oral or intravenous contrast. CT dose reduction technique was used, including Automated Exposure Control. FINDINGS: LUNG BASES: Partially imaged median sternotomy. Mild reticulation with bronchial ectasia but definite honeycombing periphery. Partially imaged cardiac lead and qualitatively severe coronary atherosclerotic calcification. LIVER: Cirrhosis BILE DUCTS: Nondilated. GALLBLADDER: Within normal limits. SPLEEN: Enlarged at 16.8 cm craniocaudally. PANCREAS: Within normal limits. ADRENALS: Within normal limits. KIDNEYS/URETERS: Numerous small hypoattenuating, intermediate attenuating, and hyperattenuating foci, most likely cysts. BOWEL: Postsurgical changes of left hemicolectomy. Remaining bowel is normal in caliber. Appendix is absent. PERITONEUM/RETROPERITONEUM: No ascites, free air or enlarged mesenteric/retroperitoneal lymph nodes. PELVIC ORGANS: Prostate is present. Bladder is mildly distended. VESSELS: The infrarenal abdominal aorta is severely atherosclerotic and ectatic up to 2.8 cm. ABDOMINAL WALL: Midline laparotomy and left periumbilical scar. The anterior wall of a segment of small bowel extends through the left periumbilical scar on image 83 of series 2, though a discrete hernia sac is not defined. BONES: No suspicious lytic or blastic lesions. Procedure Note Rao Corcoran MD - 06/30/2024 PROCEDURE: CT ABDOMEN PELVIS WO CONTRAST DATE/TIME OF EXAM: 06/30/2024 9:17 AM CLINICAL INFORMATION: None relevant/not provided if blank. Indication: K43.2: Incisional hernia without obstruction or gangrene Additional History: COMPARISON: None. TECHNIQUE: CT of the abdomen and pelvis was performed without oral or intravenous contrast. CT dose reduction technique was used, including Automated ExposureControl. FINDINGS: LUNG BASES: Partially imaged median sternotomy. Mild reticulation with bronchial ectasia but definite honeycombing periphery. Partially imaged cardiac lead and qualitatively severe coronary atherosclerotic calcification. LIVER: Cirrhosis BILE DUCTS: Nondilated. GALLBLADDER: Within normal limits. SPLEEN: Enlarged at 16.8 cm craniocaudally. PANCREAS: Within normal limits. ADRENALS: Within normal limits. KIDNEYS/URETERS: Numerous small hypoattenuating, intermediateattenuating, and hyperattenuating foci, most likely cysts. BOWEL: Postsurgical changes of left hemicolectomy. Remaining bowel is normal in caliber. Appendix is absent. PERITONEUM/RETROPERITONEUM: No ascites, free air or enlarged mesenteric/retroperitoneal lymph nodes. PELVIC ORGANS: Prostate is present. Bladder is mildly distended. VESSELS: The infrarenal abdominal aorta is severely atherosclerotic and ectatic up to 2.8 cm. ABDOMINAL WALL: Midline laparotomy and left periumbilical scar. The anterior wall of a segment of small bowel extends through the left periumbilical scar on image 83 of series 2, though a discrete hernia sacis not defined. BONES: No suspicious lytic or blastic lesions. IMPRESSION: 1. Probable small periumbilical incisional hernia, presumably a prior ostomy site, though the hernia sac is difficult to define. 2. Hepatic cirrhosis and portal hypertension. 3. Findings suggesting polycystic kidneys with numerous incompletely characterized intermediate attenuating lesions, possibly hemorrhagic/proteinaceous cyst. 4. Liver and kidneys could be further evaluated by MR, if not performedat an outside institution. > Interpreting Provider: Rao Corcoran MD on 06/30/2024 10:08 AM Shabnam Laith MD CT ORDERABLES Care Teams National Sales Executive Relationship Specialty Start Date End Date Alexandra De León [address], [address] [place] [address] PCP - General 06/26/24
--- OUTSIDE RECORDS SUMMARY | 2024-11-26 07:12 | XMS_ITS | Clinical Summary ---
Author Organization [facility] Address [address] [place] [address] Care Team Providers Care Software Reverse Engineer Name Role Phone Alexandra De León Primary Care Provider [phone] Source Comments [facility],non-owned Affiliates and Associated Physician Practices is amultiple site organization consisting of ambulatory clinics and hospital sitesin [place], [place], [place] and [place]. This disclosure is being madepursuant to the Care Everywhere program and may not contain all information available regarding this patient. Last updated 18.[facility] Allergies No known active allergies Medications * [...] Mass Index 27.02 07/31/2024 11:40 AM CDT Plan of Treatment Health Maintenance Due Date Last Done Comments COLOGUARD (AGES 45-75) - COL ON CA SCREENING 1958 COLON MONITORING 1958 COLONOSCOPY - COLON CA SCREENING 1958 CT COLONOGRAPHY - COLON CA SCREENING 1958 Colorectal Cancer Screening 1958 FIT - COLON CA SCREENING 1958 FLEX SIG - COLON CA SCREENING 1958 MEDICARE AWV 12 MONTHS 1958 HIV SCREENING 1973 HEPATITIS C SCREENING 12/13/1976 DTAP/TDAP/TD VACCINES (1 - Tdap) 1977 PNEUMOCOCCAL VACCINE 50+ (1 of 2 - PCV) 1977 ZOSTER VACCINE (1 of 2) 2008 HEPATITIS B VACCINE (1 of 3 - Risk 3-dose series) 2018 Respiratory Syncytial Virus (RSV) Vaccine Pt: or over 60 yrs (1 - Risk 60-74 years 1-dose series) 2018 COVID-19 VACCINE ( - 2023-2 5 season) 2024 INFLUENZA VACCINE (#1) 2024 DEPRESSION SCREENING 10/01/2024 SCREENING FOR DIABETES 07/16/2027 4, 07/14/2024 HIB VACCINE Aged Out No longer eligi ble based on patient's age to complete this topic HPV VACCINE Aged Out No longer eligi ble based on patient's age to complete this topic MENINGOCOCCAL (Group B) VACCINE Aged Out No longer eligible b ased on patient's age to complete this topic MENINGOCOCCAL VACCINE Aged Out No matt vincent eligible based on patient's age to complete this topic Procedures Procedure Name Priority Date/Time Associated Diagnosis Comments BASIC METABOLIC PANEL (CALCIUM TOTAL) STAT 07/16/2024 7:58 AM CDT Thrombocytopenia (HCC) from Last 3 Months or Most Recently Relevant to Health Maintenance Results * (ABNORMAL) BASIC METABOLIC PANEL (CALCIUM TOTAL) (07/16/2024 7:58 AM CDT) BUN 27(H) 7 - 26 mg/dL 07/16/2024 8:41 AM [facility] Creatinine 1.81(H) 0.71 - 1.16 mg/dL 07/16/2024 8:41 AM [facility] Sodium 136 136 - 145 mmol/L 07/16/2024 8:41 AM [facility] Potassium 4.8(H) 3.5 - 4.5 mmol/L 07/16/2024 8:41 AM [facility] Comment:Hemolysis detected i n this specimen. Hemolysis may cause false elevations in potassium leading to pseudohyperkalemia or masked hypokalemia. Recommend repeat testing if clinically indicated. Chloride 106 98 - 107 mmol/L 07/16/2024 8:41 AM [facility] CO2 23 22 - 29 mmol/L 07/16/2024 8:41 AM [facility] Glucose 78 70 - 115 mg/dL 07/16/2024 8:41 AM [facility] Calcium 9.4 8.4 - 10.2 mg/dL 07/16/2024 8:41 AM [facility] Anion Gap 7 6 - 16 07/16/2024 8:41 AM [facility] BUN/Creatinine Ratio 15 7 - 23 07/01 8:41 AM [facility] Osmolality Calculated 286 275 - 295 mOsm/kg 07/16/2024 8:41 AM [facility] eGFR by CKD-EPI 41(L) >=90 mL/min/1 .73 m2 07/16/2024 8:41 AM [facility] Blood BLOOD SPECIMEN / Unknown Venipuncture / Unknown 07/16/2024 7:58 AM CDT 07/16/2024 8:12 AM [facility] Varun Valdes MD LAB - CHEMISTRY [facility] Organization Address City/State/ZIP Co de Phone Number [facility] [address] [place] [address], [facility] [phone] from Last 3 Months or Most Recently Relevant to Health Maintenance Advance Directives Healthcare Agents on File Name Relationship Healthcare Agent Relationshi p Communication Gonzalo Cordero Friend Power of Copier Operator (POA) Care Teams Software Reverse Engineer Relationship Specialty Start Date End Date Alexandra De León [id number], [address] [place] [address] PCP - General 06/26/24
--- OUTSIDE RECORDS SUMMARY | 2024-11-26 07:12 | XMS_ITS | Clinical Summary ---
Author Organization [facility] Address [facility] [place] [address] Care Team Providers Care Suit Attendant Name Role Phone Alexandra De León [facility] Primary Care Provider + Varun Cameron MD Unavailable Aurea Abad MD Unavailable [phone] Terrence Greene MD Unavailable Walt Archibald MD Unavailable [phone] Cedric Diaz DPM Unavailable Allergies No known active allergies Medications aspirin EC (ECOTRIN) 81 MG tablet Take 1 tablet (81 mg total) by mouth daily. Active lisinopril (PRINIVIL) 20 MG tabletIndication s:Chronic combined systolic and diastolic congestive heart failure (CMS/HCC HHS/HCC) Take 1 tablet (20 mg total) by mouth daily. 90 tablet 3 10/23/2024 Active Dapagliflozin Propanediol (FARXIGA) 5 MG TabIndications:C hronic combined systolic and diastolic congestive heart failure (CMS/HCC HHS/HCC) Take 1 tablet by mouth daily. 90 tablet 3 10/23/2024 Active colchicine 0.6 MG tabletIndication s:Chronic gout due to renal impairment of multiple sites without tophus Take 1 tablet (0.6 mg total) by mouth 2 (two) times daily. 90 tablet 3 10/23/2024 Active pravastatin (PRAVACHOL) 80 MG tabletIndication s:Coronary artery disease involving other coronary artery bypass graft with other forms of angina pectoris ([facility]/HCC) Take 1 tablet (80 mg total) by mouth nightly at bedtime. at bedtime 90 tablet 3 10/23/2024 Active nadolol (CORGARD) 20 MG tabletIndication s:Cirrhosis of liver without ascites, unspecified hepatic cirrhosis type ([facility]) Take 1 tablet (20 mg total) by mouth daily. 90 tablet 3 10/23/2024 Active Active Problems Problem Noted Date Diagnosed Date Bilateral carotid artery stenosis 01/20/2024 Prediabetes 10/08/2023 Mixed hyperlipidemia 10/08/2023 Ischemic cardiomyopathy with implantable cardioverter-defibrillator (ICD) 10/08/2023 BPH (benign prostatic hyperplasia) 10/08/2023 CHF (congestive heart failure) ([facility]) 07/05/2023 Chronic kidney disease 07/05/2023 Overview (07/05/2023): stage 3 Gout, unspecified 07/05/2023 Myocardial infarction ([facility]) 07/05/20 Overview (07/05/2023): 5 Paroxysmal atrial fibrillation ([facility]) 07/05/2023 Sick sinus syndrome ([facility]) 07/05/2023 Overview (07/05/2023): s/p pacemaker Spina bifida occulta 07/05/2023 Unspecified cirrhosis of liver ([facility]) 07/05/2023 AICD (automatic cardioverter/defibrillator) pres ent 05/20/2014 Overview (07/20/2023): Biotronik Ilesto DDD/ICD implanted 05/20/2014 + new RA lead, RV lead is chronic from 12/02/2012 Encounters Date Type Department Care Team Description 10/23/2024 10:55 AM SILVER PLATER - 10/23/2024 11:59 PM SILVER PLATER Hospital Encounter [facility] [place] [address] [place] [address] Aurea Abad MD Discharge Disposition: Home or Self Care (Routine Discharge) 10/23/2024 10:00 AM SILVER PLATER Office Visit [facility] Medical [facility]pecialty [facility] - [facility], [facility] [address] [place] [phone] Aurea Abad MD Chronic Kidney Disease 10/23/2024 7:20 AM SILVER PLATER Office Visit [facility] Medical [facility] Family & Internal Medicine - [address] [address] Alexandra De León, TOLL BRIDGE ATTENDANT- Follow Up (3 mo f/u ) 10/23/2024 Travel 10/14/2024 Scan HEALTH INFO SRVCS Scanned, [facility] 08/31/2024 8:30 AM SILVER PLATER Allied Health/Nurse Visit [facility] [address], [facility] [address] [place] [address] Radha Noe MD Remote Device Check (Biotronik remote ICD check) from Last 3 Months Family History Medical History Relation Comments COPD Brother Kidney Disease Brother Heart Father Stroke Mother Cancer Sister Relation Status Comments Brother Father Mother Sister Social History Tobacco Use Types Packs/Day Years Used Date Smoking Tobacco: Former Cigarettes 1 25 1 975 - 2000 Smokeless Tobacco: Never Tobacco Cessation:Counseling Given: No Alcohol Use Standard Drinks/Week Comments Not Currently 0 (1 standard drink = 0.6 oz pur e alcohol) rare; quit 15-16 years PHQ-2 Answer Date Recorded Patient Health Questionnaire-2 Score 0 10/23/2024 Sex and Gender Information Value Date Recorded Sex Assigned at Male 10/23/2024 7:13 AM SILVER PLATER Legal Sex Male 11:26 AM CDT Gender Identity Not on file Sexual Orientation Not on file Last Filed Vital Signs Vital Sign Reading Time Taken Comments Blood Pressure 127/79 10/23/2024 9:44 AM SILVER PLATER Pulse 73 10/23/2024 9:44 AM SILVER PLATER Temperature 36.2 C (97.2 F) 10/23/2024 9:44 AM SILVER PLATER Respiratory Rate 16 10/23/2024 7:35 AM SILVER PLATER Oxygen Saturation 95% 10/23/2024 9:44 AM SILVER PLATER Inhaled Oxygen Concentration - - Weight 76 kg (167 lb 9.6 oz) 10/23/2024 9:44 AM SILVER PLATER Height 162.6 cm (5' 4 ) 10/23/2024 9:44 AM SILVER PLATER Body Mass Index 28.77 10/23/2024 9:44 AM SILVER PLATER Plan of Treatment Upcoming Encounters Date Type Department Care Team (Late st Contact Info) Description 12/15/2024 10:25 AM CDT Allied Health/Nurse Visit [facility], [address] [place] [address] Radha Noe MD [facility]. [facility] [address] [place] [address] 12/31/2024 11:45 AM CDT Office Visit [facility] [address] [place] [phone] Jeanette Garces SCUBA INSTRUCTOR-C [facility]. [facility] [address] [place] [address] 01/12/2025 10:00 AM CDT Appointment [facility] [address] [place] [address] Terrence Greene MD [facility]. [facility] [address] [place] [address] 01/21/2025 9:00 AM CDT Office Visit [facility] [address] [place] [phone] Terrence Greene MD [facility]. [facility] [address] [place] [address] 01/22/2025 8:40 AM CDT Office Visit [facility] Family & Internal Medicine [facility] [address] [place] [address] Alexandra De León, [facility]- [address] [facility], [address] [place], [place] [id number] 04/01/2025 10:30 AM CDT Office Visit [facility] [address] Radha Noe MD Three [facility]. [address] [place] [address] 05/18/2025 10:20 AM CDT Office Visit [facility] Multispecialty Care - [facility], [facility] [address] [place] [phone] Aurea Abad MD 3 [facility], [facility] [address] [place] [address] Health Maintenance Due Date Last Done Comments Pneumococcal Vaccine: 65+ Years (1 of 2 - PCV) 1964 Hepatitis C 1976 ASCVD LDL 07/05/2024 07/05/2023 DTaP, Tdap and Td Vaccines ( 1 - Tdap) 01/20/2025 Postponed from 12/18 (Patient Refused) RSV Immunization or 60+ Years (1 - Risk 60-74 years 1-dose series) 01/20/2025 Postponed from 11/30 (Patient Refused) Zoster Vaccines (1 of 2) 01/20/2025 Pos tponed from 2008 (Patient Refused) Pneumococcal Vaccine: Pediatrics (0 to 5 Years) and At-Risk Patients (6 to 64 Years) (1 of 2 - PCV) 07/01/2025 Postponed from (Patient Refused) COVID-19 Vaccine (1 - 2023-2 5 season) 2025 Postponed from 06/01 (Patient Refused) Influenza Adult (#1) 2025 Postpon ed from 07/01/2024 (Patient Refused) Colorectal Cancer Screening Colonoscopy (10 Years) 12/30/2033 12/31/2023 AAA SCREENING Completed 07/29/2024, 06/30/2024, 06/30/2024 PHQ-2 (Physician [place]) Completed 10/23/2024 Meningococcal B Vaccine Aged Out No l onger eligible based on patient's age to complete this topic Meningococcal Vaccine Aged Out No matt vincent eligible based on patient's age to complete this topic RSV Immunizations Under 20 Months Aged Out No longer eligible b ased on patient's age to complete this topic Medical Devices Implanted Type Area Certified Emergency Vehicle Technician Device Identifier Shelf Expiration Date Model / Serial / Lot Generator- Implanted:Qty : 1 on 08/20/2023 by Radha Noe MD Generator Left: Chest Wall 04/30/2024 / [id number] / Rv Lead Implant- 013 Implanted:Qty : 1 on 12/02/2012 Lead Implant Ventricle BI[place]RON[place] [id number] / [id number] / Ra Lead Implant-2013 Implanted:Qty : 1 on 05/20/2014 Lead Implant Atrium BIOTRONIK SETROX S [id number] / [id number] / Explanted Type Area Certified Emergency Vehicle Technician Device Identifier Shelf Expiration Date Model / Serial / Lot Biotronik Icd-12/02/2012 Implanted:Qty: 1 on 12/02/2012 Explanted:Qty: 1 on 05/20/2014 ICD BIOTRONIK [id number] / [id number] / Description:Upgraded to DDD Biotronik Icd-05/20/2014 Implanted:Qty: 1 on 05/20/2014 Explanted:Qty: 1 on 08/20/2023 by Radha Noe MD ICD BIOTRONIK [id number] [facility] / [id number] / Description:MRI conditional Procedures Procedure Name Priority Date/Time Associated Diagnosis Comments CBC, AUTO, NO DIFF Routine 10/23/2024 11 :11 AM SILVER PLATER Stage 3b chronic kidney disease ([facility] HHS/HCC) URIC ACID BLOOD Routine 10/23/2024 11:11 AM SILVER PLATER Stage 3b chronic kidney disease ([facility] HHS/HCC) BASIC METABOLIC PANEL Routine 10/23/2024 11:11 AM SILVER PLATER Stage 3b chronic kidney disease ([facility] HHS/HCC) ALBUMIN URINE RANDOM W/CREATININE Routine 10/23/2024 11:05 AM SILVER PLATER Stage 3b chronic kidney disease ([facility] HHS/HCC) CT ABD+PEL WO CON STAT 07/29/2024 12: 23 PM CDT COLONOSCOPY GENERIC (SCAN ORDER) 12/31/2023 LIPID PANEL Routine 07/05/2023 10:17 AM CDT Coronary artery disease involving other coronary artery bypass graft with other forms of angina pectoris from Last 3 Months or Most Recently Relevant to Health Maintenance Results * (ABNORMAL) BASIC METABOLIC PANEL (10/23/2024 11:11 AM SILVER PLATER) GLUCOSE 81 70 - 99 MG/DL 10/23/2024 12:32 PM [facility] BUN 28(H) 7 - 18 MG/DL 10/23/2024 12:32 PM [facility] CREATININE S/P/B 1.87(H) 0.7 - 1.3 MG/DL 10/23/2024 12:32 PM [facility] SODIUM S/P/B 138 136 - 145 MMOL/L 10/23/2024 12:32 PM [facility] POTASSIUM S/P/B 4.9 3.5 - 5.1 MMOL/L 10/23/2024 12:32 PM [facility] CHLORIDE S/P/B 109 97 - 115 MMOL/L 10/23/2024 12:32 PM [facility] CO2 25.1 21 - 32 MMOL/L 10/23/2024 12:32 PM [facility] CALCIUM S/P/B 9.8 8.5 - 10.1 MG/DL 10/23/2024 12:32 PM [facility] ANION GAP 3.9 2 - 10 MMOL/L 10/23/2024 12:32 PM [facility] BUN CREATININE RATIO 15.0 6 - 26 10/23/2024 12:32 PM [facility] GFR ESTIMATE 39(L) >90 ML/MIN/1.7 3 M2 10/23/2024 12:32 PM [facility] Comment: NOTE: eGFR is not calculated for patients <18 years of age or gender unknown. This is an estimated GFR calculation using the new CKD EPI creatinine equation without race and so does not require a correction factor for race. This estimated GFR should not be used for calculating drug doses. 10/23/2024 11:1 1 AM SILVER PLATER Aurea Abad MD LABORATORY Final Result [facility] [address] [place] [address], [place] [phone] * (ABNORMAL) CBC, AUTO, NO DIFF (10/23/2024 11:11 AM SILVER PLATER) WBC 3.84(L) 4.5 - 11.0 x10'3/uL 10/23/2024 12:32 PM [facility] RBC 4.40(L) 4.70 - 6.10 x10'6/uL 10/23/2024 12:32 PM [facility] HGB 14.5 14.0 - 18.0 G/DL 10/23/2024 12:32 PM [facility] HCT 43.3 43.0 - 54.0 % 10/23/2024 12:32 PM [facility] MCV 98.4(H) 80.0 - 94.0 FL 10/23/2024 12:32 PM [facility] MCH 33.0(H) 27.0 - 31.0 PG 10/23/2024 12:32 PM [facility] MCHC 33.5 32.0 - 36.0 G/DL 10/23/2024 12:32 PM [facility] RDW 13.8 11.5 - 14.5 % 10/23/2024 12:32 PM [facility] PLT 67(L) 130 - 400 x10'3/uL 10/23/2024 12:32 PM [facility] MPV 11.0 9.3 - 12.2 FL 10/23/2024 12:32 PM [facility] RBC MORPHOLOGY RBC MORPHOLOGY APPEARS NORMAL. SLIDE REVIEWED. 10/23/2024 12:32 PM [facility] PLT EST. DECREASED 10/23/2024 12:32 PM [facility] 10/23/2024 11:1 1 AM SILVER PLATER Aurea Abad MD LABORATORY Final Result [facility] [address] [place] [address], * URIC ACID BLOOD (10/23/2024 11:11 AM SILVER PLATER) URIC ACID 6.2 3.5 - 7.2 MG/DL 10/23/2024 12:32 PM [facility] 10/23/2024 11:1 1 AM SILVER PLATER Aurea Abad MD LABORATORY Final Result Performing Organization Address [facility] Co de Phone Number [facility] [address] [place] [address], [place] [phone] * (ABNORMAL) ALBUMIN URINE RANDOM W/CREATININE (10/23/2024 11:05 AM SILVER PLATER) CREATININE (U) 90.2 39 - 259 MG/DL 10/23/2024 12:26 PM SILVER PLATER [facility] MICROALBUMIN (U) 2.0(H) <2.0 mg/dL 10/23/19 12:26 PM SILVER PLATER [facility] ALBUMIN/CREAT RATIO 22.0 <30 MG/G 10/23/2024 12:26 PM SILVER PLATER [facility] URINE SPECIMEN / Unknown 10/23/2024 11:05 AM SILVER PLATER Aurea Abad MD URINE ORDERABLES Final Result Performing Organization Address [facility] Co de Phone Number [facility] [address] [place] [address], [place] [phone] * CT ABD+PEL WO CON (07/29/2024 12:23 PM CDT) Anatomical Region Laterality Modality Abdomen Computed Tomogra phy 07/29/2024 12:3 1 PM CDT Impressions 07/29/2024 12:39 PM CDT IMPRESSION: In the left lower abdominal wall there is a subcutaneous collection measuring 6 x 2.4 x 6 cm. This is hyperattenuating and measures 40 Hounsfield units. This concerning for complex fluid. Hemorrhage could have this appearance. There is a small bubble of gas concerning for infection. If concern for active bleeding is suspected clinically CTA would be recommended alternatively potential targeted ultrasound may be of use. Urinary bladder distention. Abdominal aortic aneurysm measuring 2.8 cm. Dilatation of the common iliac arteries the right measures 1.7 while the left measures 1.8. Vascular surgery consultation recommended. Heterogeneously attenuating kidneys. Elective renal ultrasound. Ordered By: ROSIE HERRMANN Interpreted By: Fredis Montilla MD, 07/29/2024 12:31 PM Narrative 07/29/2024 12:39 PM CDT [facility] [address] [place] [address] Procedure(s): CT ABD+PEL WO CON Date of service: 07/29/2024 12:08 PM Provided clinical information: 63 years, Male, bleeding wound hernia repair 2 weeks ago. Left lower quadrant bleeding. Chronic kidney disease stage III. Procedure and materials: Helical images the abdomen and pelvis are obtained from superior to the diaphragm to inferior to the pubic symphysis. Images obtained without intravenous contrast. A dose lowering technique was used for this procedure, which may include, but is not limited to, dose reduction technique, automated exposure control, iterative reconstruction, ALARA (As Low As Reasonably Achievable), or Image Gently techniques. Limitations: Patient refused intravenous contrast. Comparison studies: None. Findings: CT abdomen and pelvis: Lung Bases: Prominent atelectatic changes are present in the lower lungs bilaterally. There are areas of pleural thickening and scarring in the lung bases. No effusions. Adrenals:Mild thickening of the right left adrenal gland. This may relate to mild hyperplasia. Spleen:Spleen upper limits of normal at 12.2 cm. Gallbladder and Biliary system:No CT evidence of cholelithiasis. No biliary ductal dilatation. Pancreas:Unremarkable. Liver:Cirrhotic appearing liver. Kidneys:Heterogeneous attenuation of the kidneys with areas of hyperdensity. Elective renal ultrasound recommended. Bowel:Moderate fecal volume is present within the colon. No small bowel distention. Aorta and Retroperitoneum:No enlarged lymph nodes.Dilatation of the abdominal aorta is present. This measures approximately 2.8 cm. Right common iliac arteries aneurysmal 1.7 cm. Left common iliac artery is aneurysmal at 1.8 cm. Vascular surgery consultation recommended. Pelvic Organs:Urinary bladder is distended. Prostate is not enlarged. Bone/Musculoskeletal: Diffuse degenerative changes of the thoracolumbar spine. Vacuum disc formation is present at L5-S1. Free fluid: Stranding changes are present about the anterior abdominal wall in the region of the left lower quadrant. There is overlying skin thickening that is present. There is an area of collection that is present. There is a small bubble of gas that is present within this. The collection measures approximately 6 cm in transverse dimension of approximately 2.4 cm in AP dimension and extends a craniocaudal distance of approximately 5.8 cm. The fluid measures approximately 40 Hounsfield units. This is hyperattenuating and likely indicates complex fluid. Follow-up examination with intravenous contrast or possible ultrasound may be of use. Procedure Note Fredis Montilla MD - 07/29/2024 [facility] [address] [place] [address] Procedure(s): CT ABD+PEL WO CON Date of service: 07/29/2024 12:08 PM Provided clinical information: 63 years, Male, bleeding wound herniarepair 2 weeks ago. Left lower quadrant bleeding. Chronic kidney diseasestage III. Procedure and materials: Helical images the abdomen and pelvis areobtained from superior to the diaphragm to inferior to the pubicsymphysis. Images obtained without intravenous contrast. A dose lowering technique was used for this procedure, which may include,but is not limited to, dose reduction technique, automated exposurecontrol, iterative reconstruction, ALARA (As Low As ReasonablyAchievable), or Image Gently techniques. Limitations: Patient refused intravenous contrast. Comparison studies: None. Findings: CT abdomen and pelvis: Lung Bases: Prominent atelectatic changes are present in the lower lungsbilaterally. There are areas of pleural thickening and scarring in thelung bases. No effusions. Adrenals:Mild thickening of the right left adrenal gland. This may relateto mild hyperplasia. Spleen:Spleen upper limits of normal at 12.2 cm. Gallbladder and Biliary system:No CT evidence of cholelithiasis. Nobiliary ductal dilatation. Pancreas:Unremarkable. Liver:Cirrhotic appearing liver. Kidneys:Heterogeneous attenuation of the kidneys with areas ofhyperdensity. Elective renal ultrasound recommended. Bowel:Moderate fecal volume is present within the colon. No small boweldistention. Aorta and Retroperitoneum:No enlarged lymph nodes.Dilatation of theabdominal aorta is present. This measures approximately 2.8 cm. Rightcommon iliac arteries aneurysmal 1.7 cm. Left common iliac artery isaneurysmal at 1.8 cm. Vascular surgery consultation recommended. Pelvic Organs:Urinary bladder is distended. Prostate is not enlarged. Bone/Musculoskeletal: Diffuse degenerative changes of the thoracolumbarspine. Vacuum disc formation is present at L5-S1. Free fluid: Stranding changes are present about the anterior abdominalwall in the region of the left lower quadrant. There is overlying skinthickening that is present. There is an area of collection that ispresent. There is a small bubble of gas that is present within this. Thecollection measures approximately 6 cm in transverse dimension ofapproximately 2.4 cm in AP dimension and extends a craniocaudal distanceof approximately 5.8 cm. The fluid measures approximately 40 Hounsfieldunits. This is hyperattenuating and likely indicates complex fluid.Follow-up examination with intravenous contrast or possible ultrasound maybe of use. IMPRESSION: In the left lower abdominal wall there is a subcutaneous collectionmeasuring 6 x 2.4 x 6 cm. This is hyperattenuating and measures 40Hounsfield units. This concerning for complex fluid. Hemorrhage could havethis appearance. There is a small bubble of gas concerning for infection.If concern for active bleeding is suspected clinically CTA would berecommended alternatively potential targeted ultrasound may be of use. Urinary bladder distention. Abdominal aortic aneurysm measuring 2.8 cm. Dilatation of the common iliacarteries the right measures 1.7 while the left measures 1.8. Vascularsurgery consultation recommended. Heterogeneously attenuating kidneys. Elective renal ultrasound. Ordered By: ROSIE HERRMANN Interpreted By: Fredis Montilla MD, 07/29/2024 12:31 PM Rosie Herrmann MD CT Final Res ult * COLONOSCOPY GENERIC (SCAN ORDER) (12/31/2023) 12/31/2023 [facility] Scanned SCANNING Final Resu lt * (ABNORMAL) LIPID PANEL (07/05/2023 10:17 AM CDT) CHOLESTEROL 141 <200.0 MG/DL 07/05/2023 11:02 AM CDT [facility] TRIGLYCERIDES 159(H) <150 MG/DL 07/05/2023 11:02 AM CDT [facility] HDL 36(L) >40.0 MG/DL 07/05/2023 11:02 AM CDT [facility] LDL (CALCULATED) 73 <100 MG/DL 07/05/2023 11:02 AM CDT [facility] NON HDL CHOLESTEROL 105 <130 MG/DL 07/05/2023 11:02 AM CDT [facility] CHOL/HDL RATIO 3.9 0.0 - 4.5 07/05/2023 11:02 AM T [facility] VLDL CALCULATION 32 5 - 55 MG/DL 07/05/2023 11:02 AM T [facility] LIPID INTERPRETATION 07/05/2023 11:02 AM T [facility] Comment: [facility] CONCENSUS REPORT RECOMMENDATIONS: ADULT CHILD LOW RISK: CHOLESTEROL <200 <170 TRIGLYCERIDE <150 --- HDL >=60 --- LDL <100 <110 BORDERLINE: CHOLESTEROL 200-239 170-199 TRIGLYCERIDE 150-199 --- HDL 40-59 --- LDL 100-159 110-129 HIGH RISK: CHOLESTEROL >=240 >=200 TRIGLYCERIDE >=200 --- HDL <40 --- LDL >=160 >=130 07/05/2023 10:1 7 AM CDT Alexandra De León TOLL BRIDGE ATTENDANT- LABORATORY Final Re sult [facility] [address] [place] [address], [place] [phone] from Last 3 Months or Most Recently Relevant to Health Maintenance Insurance MEDICAID MEDICARE Advance Directives Documents on File Type Date Recorded Patient Exhibition Carver Expl anation Power of Legislators 08/20/2023 Power of A ttorney Care Teams Suit Attendant Relationship Specialty Start Date End Date Alexandra De León, TOLL BRIDGE ATTENDANT- [address] [place] [address] PCP - General Nurse Practitioner Family 06/22/23 [place] [address] [place] [address] Consulting Physician CARDIOVASCULAR DISEASE 04/21/24 Aurea Abad MD [address] [facility] [address] [place] [address] Consulting Physician NEPHROLOGY 04/21/24 [place] [address] [place] [address] Referring Physician VASCULAR SURGERY 04/21/24 Walt Archibald MD [address] [facility] [address] [place] [address] Consulting Physician GASTROENTEROLOGY 04/21/24 Cedric Diaz DPM [address] [facility] [address] [place] [address] Referring Physician PODIATRY 04/21/24
== END 2024-11-26 07:08 | disposition home or self-care (01) ==
PROVIDERS: Visit Provider Nurse Practitioner Family
DX: K74.60 Unspecified cirrhosis of liver (principal); R77.2 Abnormality of alphafetoprotein
CPT/HCPCS: 76705